=== PATIENT | male | born 1965 | race Caucasian/White ===

== ENCOUNTER 2016-11-16 23:36 | Day surgery (SDCO) | payer OTHER ==
[~2016-11-16] VITALS: Ht 167.6 cm; Wt 144.4 kg
[2016-11-17 00:53] LABS: BASOPHIL 0.1 % (0-2); EOSINOPHIL 0.8 % (0-5); HCT 37.3 % (42.0-52.0); HGB 12.3 g/dl (13.2-18.0); LYMPHOCYTE 5.2 % (15-48); MCH 27.8 pg (25.0-31.0); MCV 84.4 fL (78.0-100.0); MONOCYTE 7.3 % (0-12); MPV 10.8 fL (6.0-9.5); NEUTROPHIL 86.6 % (41-80); PLT 187 K/uL (150-400); RBC 4.42 M/uL (4.70-6.00); RDW 15.5 % (11.5-14.0)
[2016-11-17 00:57] LABS: WBC 22.2 K/uL (4.0-10.5)
[2016-11-17 01:10] LABS: ALBUMIN 3.6 g/dL (3.5-5.0); BILIRUBIN - TOTAL 0.6 mg/dL (0.1-1.0); CREATININE 1.9 mg/dL (0.7-1.2); GLOBULIN (CALCULATION) 3.1 g/dL (2.2-4.2); LACTIC ACID 2.2 mmol/L (0.5-2.2); POTASSIUM 4.6 mmol/L (3.5-5.1); TOTAL PROTEIN 6.7 g/dL (6.4-8.3)
[2016-11-17 01:41] LABS: BILIRUBIN NEGATIVE (NEGATIVE); BLOOD NEGATIVE Ery/uL (NEGATIVE); CLARITY CLEAR (CLEAR); COLOR YELLOW (YELLOW); GLUCOSE (U) 3+ mg/dL (NORMAL); KETONE (U) TRACE mg/dL (NEGATIVE); LEUKOCYTES NEGATIVE Leu/uL (NEGATIVE); NITRITE NEGATIVE (NEGATIVE); PROTEIN TRACE (LOW) mg/dL (NEGATIVE); SPECIFIC GRAVITY 1.025 (1.001-1.030); UROBILINOGEN 0.2 mg/dL (0.2-1.0)
[2016-11-17 01:43] LABS: SQUAMOUS EPITHELIAL CELLS RARE
[2016-11-18 05:51] LABS: BASOPHIL 0.2 % (0-2); EOSINOPHIL 2.2 % (0-5); HCT 33.8 % (42.0-52.0); LYMPHOCYTE 13.4 % (15-48); MCHC 32.5 g/dL (32.0-36.0); MONOCYTE 10.3 % (0-12); MPV 10.9 fL (6.0-9.5); NEUTROPHIL 73.9 % (41-80); PLT 134 K/uL (150-400); RBC 3.93 M/uL (4.70-6.00); RDW 15.9 % (11.5-14.0); WBC 9.6 K/uL (4.0-10.5)
[2016-11-18 06:17] LABS: MAGNESIUM 2.11 mg/dL (1.40-2.10); POTASSIUM 4.5 mmol/L (3.5-5.1)
[2016-11-18] MEDS ORDERED: ZOCOR80 MG PO (14:04)
[2016-11-18] MEDS ORDERED: LEVAQUIN750 M1 PO (14:04)
[2016-11-18] MEDS ORDERED: ZYRTEC10 MG PO (14:04)
[2016-11-18] MEDS ORDERED: LISINOPRIL-HCT1 EAC1 PO (14:05)
[2016-11-18] MEDS ORDERED: MELOXICAM15 MG PO (14:05)
[2016-11-18] MEDS ORDERED: METFORMIN HCL1000 M1 PO (14:05)
[2016-11-18] MEDS ORDERED: LASIX40 MG PO (14:05)
[2016-11-18] MEDS ORDERED: HUMALOG INSULIN PUMP (14:06)
[2016-11-18] MEDS ORDERED: VICTOZA 2-0.6 MG/0.1 SC (14:06)
[2016-11-18] MEDS ORDERED: GABAPENTIN600 MG PO (14:06)
[2016-11-18] MEDS ORDERED: MICRO-K10 MEQ PO (14:07)
[2016-11-18] MEDS ORDERED: NAPROSYN500 MG PO (14:07)
[2016-11-18] MEDS ORDERED: INVOKANA300 MG PO (14:07)
== END 2016-11-18 17:39 | disposition home health service (06) ==
LOC: FER 23:36 → FMS 11-17 02:45
PROVIDERS: Emergency Medicine; Nurse Practitioner; ADMIT Internal Medicine Nephrology
DX: L03.116 Cellulitis of left lower limb (principal); N17.9 Acute kidney failure, unspecified; E11.40 Type 2 diabetes mellitus with diabetic neuropathy, unspecified; Z79.4 Long term (current) use of insulin; I10 Essential (primary) hypertension; E66.01 Morbid (severe) obesity due to excess calories; Z68.43 Body mass index [BMI] 50.0-59.9, adult; E78.5 Hyperlipidemia, unspecified
CPT/HCPCS: 36415; 80048; 80053; 81001; 82150; 82962; 83605; 83735; 85025; 85651; 86140; 87040; 87088; G0378; J1644; J1956; J2543

== ENCOUNTER 2020-11-29 13:56 | Emergency (ER) | payer OTHER ==
[~2020-11-29 13:56] MED LIST: 24HOUR ALLERGY10 MG PO; CLARITIN10 MG PO; GABAPENTIN600 MG PO; HUMALOG; HUMALOG INSULIN PUMP; INVOKANA300 MG PO; KEFLEX500 MG PO; LASIX40 MG PO; LEVAQUIN750 M1 PO; LISINOPRIL-HCT1 EAC1 PO; MELOXICAM15 MG PO; METFORMIN HCL1000 M1 PO; METFORMIN HCL1000 M2 PO; MICRO-K10 MEQ PO; NAPROSYN500 MG PO; SIMVASTATIN80 MG PO; UROCIT-K10 MEQ PO; VICTOZA 2-0.6 MG/0.1 SC; VICTOZA 2-0.6 MG/0.1 SQ; ZOCOR80 MG PO; ZYRTEC10 MG PO
[2020-11-29 14:45] LABS: BASOPHIL 0.2 % (0-2); EOSINOPHIL 0.1 % (0-5); HCT 43.1 % (42.0-52.0); HGB 13.7 g/dl (13.2-18.0); LYMPHOCYTE 8.1 % (15-48); MCH 27.3 pg (25.0-31.0); MCHC 31.8 g/dL (32.0-36.0); MONOCYTE 3.5 % (0-12); MPV 11.2 fL (6.0-9.5); NEUTROPHIL 86.5 % (41-80); NRBC 0; PLT 220 K/uL (150-400); RBC 5.01 M/uL (4.70-6.00); RDW 15.1 % (11.5-14.0); WBC 13.1 K/uL (4.0-10.5)
[2020-11-29 14:54] LABS: ALBUMIN 3.3 g/dL (3.4-5.0); BILIRUBIN - TOTAL 0.7 mg/dL (0.2-1.0); BUN/CREAT RATIO (CALC) 23.9 RATIO; CREATININE 0.71 mg/dL (0.67-1.17); GLOBULIN (CALCULATION) 4.4 g/dL; POTASSIUM 3.9 mmol/L (3.5-5.1); TOTAL PROTEIN 7.7 g/dL (6.4-8.2)
[2020-11-29] MEDS ORDERED: LEVETIRACETAM500 M1 PO (16:04)
--- NOTE | 2020-12-06 15:39 | NUR ---
CALLED TO [facility] WITH 'S RECENT VISIT TO THE ER. REVIEWED PATIENT'S CHART PRIOR TO RETURN CALL.
== END 2020-11-29 16:21 | disposition home or self-care (01) ==
LOC: FER 13:56
PROVIDERS: Emergency Medicine
DX: G40.409 Other generalized epilepsy and epileptic syndromes, not intractable, without status epilepticus (principal); G31.9 Degenerative disease of nervous system, unspecified; S00.512A Abrasion of oral cavity, initial encounter; E11.9 Type 2 diabetes mellitus without complications; I10 Essential (primary) hypertension; X58.XXXA Exposure to other specified factors, initial encounter; Z86.73 Personal history of transient ischemic attack (TIA), and cerebral infarction without residual deficits
CPT/HCPCS: 36415; 70450; 80053; 84484; 85025; 93005; J1953

== ENCOUNTER 2021-01-26 09:19 | Emergency (ER) | payer OTHER ==
[~2021-01-26 09:19] MED LIST changes: +LEVETIRACETAM500 M1 PO
[2021-01-26 09:42] LABS: BASOPHIL 0.9 % (0-2); EOSINOPHIL 2.5 & (0-5); HCT 46.4 % (42.0-52.0); LYMPHOCYTE 22.5 % (15-48); MCH 26.1 pg (25.0-31.0); MCHC 32.3 g/dL (32.0-36.0); MCV 80.7 fL (78.0-100.0); MONOCYTE 7.9 % (0-12); MPV 11.2 fL (6.0-9.5); NEUTROPHIL 66.1 % (41-80); PLT 280 K/uL (150-400); RBC 5.75 M/uL (4.70-6.00); RDW 14.8 % (11.5-14.0); WBC 11.38 K/uL (4.0-10.5)
[2021-01-26 10:04] LABS: ALBUMIN 3.8 g/dL (3.4-5.0); BILIRUBIN - TOTAL 0.8 mg/dL (0.2-1.0); BUN/CREAT RATIO (CALC) 21.8 RATIO; CREATININE 0.78 mg/dL (0.67-1.17); GLOBULIN (CALCULATION) 4.6 g/dL; POTASSIUM 3.6 mmol/L (3.5-5.1); TOTAL PROTEIN 8.4 g/dL (6.4-8.2)
[2021-01-26] MEDS ORDERED: NITROGLYCERIN0.4 MG SL (11:32)
== END 2021-01-26 12:50 | disposition home or self-care (01) ==
LOC: FER 09:19
PROVIDERS: Internal Medicine
DX: I20.9 Angina pectoris, unspecified (principal); R91.1 Solitary pulmonary nodule; I10 Essential (primary) hypertension; E11.9 Type 2 diabetes mellitus without complications; F03.90 Unspecified dementia, unspecified severity, without behavioral disturbance, psychotic disturbance, mood disturbance, and anxiety; Z86.73 Personal history of transient ischemic attack (TIA), and cerebral infarction without residual deficits; Z87.891 Personal history of nicotine dependence; Z98.890 Other specified postprocedural states
CPT/HCPCS: 36415; 71045; 71275; 80053; 83690; 84484; 85025; 93005; Q9967

== ENCOUNTER 2021-02-02 17:43 | Emergency (ER) | payer OTHER ==
[~2021-02-02 17:43] MED LIST changes: +NITROGLYCERIN0.4 MG SL
[2021-02-02 18:38] LABS: EOSINOPHIL 2.4 % (0-5); HCT 43.8 % (42.0-52.0); HGB 14.3 g/dl (13.2-18.0); LYMPHOCYTE 24.8 % (15-48); MCH 26.2 pg (25.0-31.0); MCHC 32.6 g/dL (32.0-36.0); MCV 80.4 fL (78.0-100.0); MONOCYTE 10.3 % (0-12); MPV 11.7 fL (6.0-9.5); NEUTROPHIL 61.2 % (41-80); NRBC 0; PLT 247 K/uL (150-400); RBC 5.45 M/uL (4.70-6.00); RDW 15.9 % (11.5-14.0); WBC 9.2 K/uL (4.0-10.5)
[2021-02-02 18:42] LABS: INR 1.29 (0.9-1.2); PROTHROMBIN TIME 15.4 SECONDS (11.8-13.4); PTT 30.9 SECONDS (24.4-34.7)
[2021-02-02 18:49] LABS: ALBUMIN 3.7 g/dL (3.4-5.0); BILIRUBIN - TOTAL 0.6 mg/dL (0.2-1.0); BUN/CREAT RATIO (CALC) 15.7 RATIO; CREATININE 0.7 mg/dL (0.67-1.17); POTASSIUM 3.3 mmol/L (3.5-5.1); TOTAL PROTEIN 7.7 g/dL (6.4-8.2)
[2021-02-02 18:51] LABS: LACTIC ACID 1.1 mmol/L (0.4-1.9)
[2021-02-02 20:27] LABS: MAGNESIUM 1.8 mg/dL (1.8-2.4); PHOSPHORUS 2.5 mg/dL (2.6-4.7)
== END 2021-02-02 22:26 | disposition home or self-care (01) ==
LOC: FER 17:43
PROVIDERS: Emergency Medicine
DX: R41.82 Altered mental status, unspecified (principal); E83.39 Other disorders of phosphorus metabolism; E11.9 Type 2 diabetes mellitus without complications; F03.90 Unspecified dementia, unspecified severity, without behavioral disturbance, psychotic disturbance, mood disturbance, and anxiety; Z86.73 Personal history of transient ischemic attack (TIA), and cerebral infarction without residual deficits; Z88.5 Allergy status to narcotic agent; Z87.891 Personal history of nicotine dependence; Z20.822 Contact with and (suspected) exposure to COVID-19
CPT/HCPCS: 36415; 70450; 71045; 71250; 80053; 83605; 83735; 84100; 84145; 85025; 85610; 85730; 87040; 93005; J7030; U0002

== ENCOUNTER 2021-02-07 15:15 | Emergency (ER) | payer OTHER ==
[2021-02-07 16:33] LABS: BASOPHIL 0.8 % (0-2); EOSINOPHIL 0.6 % (0-5); HCT 43.8 % (42.0-52.0); HGB 14.5 g/dl (13.2-18.0); MCH 26.3 pg (25.0-31.0); MCHC 33.1 g/dL (32.0-36.0); MCV 79.5 fL (78.0-100.0); MONOCYTE 11.6 % (0-12); MPV 11.7 fL (6.0-9.5); NEUTROPHIL 70.6 % (41-80); NRBC 0; PLT 253 K/uL (150-400); RBC 5.51 M/uL (4.70-6.00); RDW 16.6 % (11.5-14.0); WBC 7.9 K/uL (4.0-10.5)
[2021-02-07 17:07] LABS: ALBUMIN 3.8 g/dL (3.4-5.0); BILIRUBIN - TOTAL 0.7 mg/dL (0.2-1.0); BUN/CREAT RATIO (CALC) 10.3 RATIO; CREATININE 0.58 mg/dL (0.67-1.17); GLOBULIN (CALCULATION) 4.2 g/dL
[2021-02-07 17:08] LABS: POTASSIUM 2.8 mmol/L (3.5-5.1)
[2021-02-07 18:09] LABS: LACTIC ACID 1.1 mmol/L (0.4-1.9)
[2021-02-07 20:09] LABS: BILIRUBIN 2+ mg/dL (NEGATIVE); BLOOD 2+ Ery/uL (NEGATIVE); CLARITY CLEAR (CLEAR); COLOR YELLOW (YELLOW); GLUCOSE (U) 2+ mg/dL (NORMAL); LEUKOCYTES NEGATIVE Leu/uL (NEGATIVE); NITRITE NEGATIVE (NEGATIVE); PROTEIN 2+ mg/dL (NEGATIVE); SPECIFIC GRAVITY 1.025 (1.001-1.030); UROBILINOGEN 0.2 mg/dL (0.2-1.0)
[2021-02-07 21:07] LABS: BACTERIA TRACE; GRANULAR CASTS MODERATE; MUCOUS LARGE
[2021-02-08 16:59] LABS: ALBUMIN 3.1 g/dL (3.4-5.0); BILIRUBIN - TOTAL 0.6 mg/dL (0.2-1.0); BUN/CREAT RATIO (CALC) 9.1 RATIO; CREATININE 0.66 mg/dL (0.67-1.17); GLOBULIN (CALCULATION) 3.9 g/dL; POTASSIUM 2.5 mmol/L (3.5-5.1)
== END 2021-02-09 00:55 | disposition other institution (70) ==
LOC: FER 15:15
PROVIDERS: Emergency Medicine
DX: R41.82 Altered mental status, unspecified (principal); E87.2 Acidosis; R62.7 Adult failure to thrive; E11.9 Type 2 diabetes mellitus without complications; Z88.5 Allergy status to narcotic agent; Z20.822 Contact with and (suspected) exposure to COVID-19
CPT/HCPCS: 36415; 36600; 80048; 80053; 81001; 82803; 83605; 83690; 84443; 85025; G0480; J2405; J3480; J7120; Q9967; U0002

== ENCOUNTER 2021-04-21 00:47 | Day surgery (SDCO) | payer OTHER ==
[~2021-04-21] VITALS: Ht 167.6 cm; Wt 107.0 kg
[2021-04-21 01:41] LABS: ALBUMIN 3.3 g/dL (3.4-5.0); ALKALINE PHOSHATASE 75 U/L (46-116); ALT 40 U/L (16-63); AST 32 U/L (15-37); BILIRUBIN - TOTAL 0.7 mg/dL (0.2-1.0); BUN 15 mg/dL (7-18); BUN/CREAT RATIO (CALC) 24.2 RATIO; CHLORIDE 100 mmol/L (98-107); CO2 (BICARBONATE) 22 mmol/L (21-32); CREATININE 0.62 mg/dL (0.67-1.17); GLUCOSE 171 mg/dL (74-106); LIPASE 1113 U/L (73-393); POTASSIUM 3.6 mmol/L (3.5-5.1); TOTAL PROTEIN 7.3 g/dL (6.4-8.2)
[2021-04-21 01:45] LABS: BASOPHIL 0.5 % (0-2); EOSINOPHIL 0.7 % (0-5); HCT 39.9 % (42.0-52.0); HGB 11.9 g/dl (13.2-18.0); MCH 25.3 pg (25.0-31.0); MCHC 29.8 g/dL (32.0-36.0); MCV 84.9 fL (78.0-100.0); MONOCYTE 7.9 % (0-12); MPV 10.8 fL (6.0-9.5); NEUTROPHIL 71.2 % (41-80); NRBC 0; PLT 241 K/uL (150-400); RDW 16.1 % (11.5-14.0); WBC 9.7 K/uL (4.0-10.5)
[2021-04-21 02:12] LABS: CORONAVIRUS 2019 SARS-COV-2 NEGATIVE (NEGATIVE); INFLUENZA A NAA NEGATIVE (NEGATIVE)
[2021-04-21 02:40] LABS: BILIRUBIN 1+ mg/dL (NEGATIVE); BLOOD NEGATIVE Ery/uL (NEGATIVE); CLARITY CLEAR (CLEAR); COLOR YELLOW (YELLOW); GLUCOSE (U) 3+ mg/dL (NORMAL); LEUKOCYTES NEGATIVE Leu/uL (NEGATIVE); NITRITE NEGATIVE (NEGATIVE); PROTEIN NEGATIVE (NEGATIVE); SPECIFIC GRAVITY 1.025 (1.001-1.030); UROBILINOGEN 0.2 mg/dL (0.2-1.0)
[2021-04-21 02:44] LABS: AMPHETAMINES NEGATIVE (NEGATIVE); BARBITURATES NEGATIVE (NEGATIVE); ECSTASY (MDMA) NEGATIVE (NEGATIVE); MARIJUANA (THC) NEGATIVE (NEGATIVE); METHADONE NEGATIVE (NEGATIVE); OPIATES NEGATIVE (NEGATIVE); OXYCODONE NEGATIVE (NEGATIVE)
[2021-04-21] MEDS ORDERED: ONDANSETRON ODT4 MG SL (03:37)
[2021-04-21 07:18] LABS: BASOPHIL 0.5 % (0-2); EOSINOPHIL 0.8 % (0-5); HCT 37.5 % (42.0-52.0); HGB 11.6 g/dl (13.2-18.0); LYMPHOCYTE 16.2 % (15-48); MCH 25.6 pg (25.0-31.0); MCHC 30.9 g/dL (32.0-36.0); MCV 82.8 fL (78.0-100.0); MONOCYTE 8.8 % (0-12); MPV 9.9 fL (6.0-9.5); NEUTROPHIL 73.3 % (41-80); NRBC 0; PLT 219 K/uL (150-400); RBC 4.53 M/uL (4.70-6.00); RDW 16.1 % (11.5-14.0); WBC 10.6 K/uL (4.0-10.5)
[2021-04-21 07:34] LABS: BUN/CREAT RATIO (CALC) 23.5 RATIO; CREATININE 0.51 mg/dL (0.67-1.17); POTASSIUM 3.7 mmol/L (3.5-5.1)
[2021-04-21] MEDS ORDERED: FARXIGA10 MG PO (08:59)
[2021-04-21] MEDS ORDERED: CENTRUM SILVER1 EAC5 PO (09:00)
[2021-04-21] MEDS ORDERED: BUSPAR5 MG PO (09:01)
[2021-04-21] MEDS ORDERED: SERTRALINE HCL150 MG PO (09:03)
[2021-04-21] MEDS ORDERED: MEGACE40 MG PO (09:04)
[2021-04-21] MEDS ORDERED: ASPIRIN EC81 MG PO (09:04)
[2021-04-21] MEDS ORDERED: ALLEGRA ALLERG180 MG PO (09:05)
[2021-04-21] MEDS ORDERED: VITAMIN D350 MCG PO (09:06)
[2021-04-21] MEDS ORDERED: HUMALOG MI100 UNIT/1 SC (09:10)
[2021-04-21 14:51] LABS: BILIRUBIN - DIRECT 0.2 mg/dL (0.00-0.20); BILIRUBIN - TOTAL 0.6 mg/dL (0.2-1.0); GLOBULIN (CALCULATION) 3.6 g/dL; TOTAL PROTEIN 6.6 g/dL (6.4-8.2)
== END 2021-04-21 17:10 | disposition home or self-care (01) ==
LOC: FER 00:47 → FTCU 04:16
PROVIDERS: Emergency Medicine Emergency Medical Services; Family Medicine; Nurse Practitioner; ADMIT Internal Medicine
DX: K85.90 Acute pancreatitis without necrosis or infection, unspecified (principal); G31.09 Other frontotemporal neurocognitive disorder; F02.80 Dementia in other diseases classified elsewhere, unspecified severity, without behavioral disturbance, psychotic disturbance, mood disturbance, and anxiety; R91.1 Solitary pulmonary nodule; I10 Essential (primary) hypertension; E11.42 Type 2 diabetes mellitus with diabetic polyneuropathy; E78.5 Hyperlipidemia, unspecified; Z20.822 Contact with and (suspected) exposure to COVID-19
CPT/HCPCS: 36415; 70450; 72125; 76705; 80048; 80053; 80061; 80076; 80305; 81003; 82962; 83605; 83690; 84484; 85025; 87088; 93005; 97163; 97166; 97530-GP; 97535; G0378; G0480; J1650; J2405; J7120; Q9967; U0002

== ENCOUNTER 2021-06-12 21:20 | Inpatient (IN) | payer OTHER ==
[~2021-06-12] VITALS: Ht 167.6 cm; Wt 104.0 kg
[~2021-06-12 21:20] MED LIST changes: +ALLEGRA ALLERG180 MG PO; +ASPIRIN EC81 MG PO; +BUSPAR5 MG PO; +CENTRUM SILVER1 EAC5 PO; +FARXIGA10 MG PO; +HUMALOG MI100 UNIT/1 SC; +MEGACE40 MG PO; +ONDANSETRON ODT4 MG SL; +SERTRALINE HCL150 MG PO; +VITAMIN D350 MCG PO
[2021-06-12 23:12] LABS: BASOPHIL 0.6 % (0-2); EOSINOPHIL 1.8 % (0-5); HCT 46.7 % (42.0-52.0); HGB 14.2 g/dl (13.2-18.0); MCH 24.3 pg (25.0-31.0); MCHC 30.4 g/dL (32.0-36.0); MCV 79.8 fL (78.0-100.0); MONOCYTE 9.1 % (0-12); MPV 11.8 fL (6.0-9.5); NEUTROPHIL 66.1 % (41-80); NRBC 0; PLT 165 K/uL (150-400); RBC 5.85 M/uL (4.70-6.00); RDW 16.4 % (11.5-14.0); WBC 12.7 K/uL (4.0-10.5)
[2021-06-12 23:19] LABS: ALBUMIN 4.1 g/dL (3.4-5.0); BILIRUBIN - TOTAL 0.6 mg/dL (0.2-1.0); BUN/CREAT RATIO (CALC) 12.9 RATIO; CREATININE 0.7 mg/dL (0.67-1.17); GLOBULIN (CALCULATION) 4.3 g/dL; MAGNESIUM 1.8 mg/dL (1.8-2.4); POTASSIUM 3.7 mmol/L (3.5-5.1); TOTAL PROTEIN 8.4 g/dL (6.4-8.2)
[2021-06-13 02:29] LABS: BUN/CREAT RATIO (CALC) 13.3 RATIO; CREATININE 0.6 mg/dL (0.67-1.17); POTASSIUM 4.2 mmol/L (3.5-5.1)
[2021-06-13 05:39] LABS: BUN 7 mg/dL (7-18); CHLORIDE 109 mmol/L (98-107); CREATININE 0.56 mg/dL (0.67-1.17); GLUCOSE 140 mg/dL (74-106); POTASSIUM 4.4 mmol/L (3.5-5.1)
[2021-06-13 07:47] LABS: BUN/CREAT RATIO (CALC) 9.8 RATIO; CREATININE 0.61 mg/dL (0.67-1.17); POTASSIUM 3.6 mmol/L (3.5-5.1)
[2021-06-13 10:03] LABS: BILIRUBIN 2+ mg/dL (NEGATIVE); BLOOD NEGATIVE Ery/uL (NEGATIVE); CLARITY CLEAR (CLEAR); COLOR YELLOW (YELLOW); GLUCOSE (U) 1+ mg/dL (NORMAL); LEUKOCYTES NEGATIVE Leu/uL (NEGATIVE); NITRITE NEGATIVE (NEGATIVE); PROTEIN 1+ mg/dL (NEGATIVE); SPECIFIC GRAVITY >=1.030 (1.001-1.030); UROBILINOGEN 0.2 mg/dL (0.2-1.0)
[2021-06-13 10:35] LABS: GRANULAR CASTS TRACE; MUCOUS TRACE; URINARY WBC RARE
[2021-06-13 10:52] LABS: CREATININE 0.57 mg/dL (0.67-1.17); POTASSIUM 3.5 mmol/L (3.5-5.1)
[2021-06-13 12:32] LABS: BUN/CREAT RATIO (CALC) 7.4 RATIO; CREATININE 0.54 mg/dL (0.67-1.17); POTASSIUM 3.5 mmol/L (3.5-5.1)
[2021-06-13 14:18] LABS: BUN/CREAT RATIO (CALC) 7.5 RATIO; CREATININE 0.53 mg/dL (0.67-1.17); POTASSIUM 3.3 mmol/L (3.5-5.1)
[2021-06-13 18:52] LABS: BUN/CREAT RATIO (CALC) 5.6 RATIO; CREATININE 0.54 mg/dL (0.67-1.17); POTASSIUM 3.8 mmol/L (3.5-5.1)
[2021-06-13 22:34] LABS: BUN/CREAT RATIO (CALC) 7.3 RATIO; CREATININE 0.55 mg/dL (0.67-1.17); POTASSIUM 4.2 mmol/L (3.5-5.1)
[2021-06-14 02:48] LABS: BUN/CREAT RATIO (CALC) 2.9 RATIO; CREATININE 0.69 mg/dL (0.67-1.17); POTASSIUM 3.8 mmol/L (3.5-5.1)
[2021-06-14 06:55] LABS: BUN/CREAT RATIO (CALC) 1.7 RATIO; CREATININE 0.59 mg/dL (0.67-1.17); POTASSIUM 3.6 mmol/L (3.5-5.1)
[2021-06-14 10:25] LABS: BUN/CREAT RATIO (CALC) 1.8 RATIO; CREATININE 0.56 mg/dL (0.67-1.17); POTASSIUM 3.7 mmol/L (3.5-5.1)
[2021-06-14 15:27] LABS: CREATININE 0.51 mg/dL (0.67-1.17); POTASSIUM 3.5 mmol/L (3.5-5.1)
[2021-06-14 19:30] LABS: BUN/CREAT RATIO (CALC) 1.8 RATIO; CREATININE 0.57 mg/dL (0.67-1.17); POTASSIUM 3.6 mmol/L (3.5-5.1)
[2021-06-15 02:20] LABS: BUN <1 mg/dL (7-18); CHLORIDE 111 mmol/L (98-107); CO2 (BICARBONATE) 20 mmol/L (21-32); CREATININE 0.55 mg/dL (0.67-1.17); GLUCOSE 115 mg/dL (74-106); POTASSIUM 3.6 mmol/L (3.5-5.1)
[2021-06-15 06:45] LABS: BUN/CREAT RATIO (CALC) 1.8 RATIO; CREATININE 0.56 mg/dL (0.67-1.17); POTASSIUM 3.2 mmol/L (3.5-5.1)
[2021-06-15] MEDS ORDERED: ATORVASTATIN CA80 MG PO (12:30)
[2021-06-15] MEDS ORDERED: MEMANTINE HCL ER7 MG PO (12:39)
[2021-06-15] MEDS ORDERED: LANTUS100 UNIT/1 SC (12:42)
[2021-06-15] MEDS ORDERED: HUMALOG100 UNIT/3 SC (12:44)
[2021-06-16 06:26] LABS: BASOPHIL 0.6 % (0-2); EOSINOPHIL 3.9 % (0-5); HCT 36.4 % (42.0-52.0); HGB 11.4 g/dl (13.2-18.0); LYMPHOCYTE 33.3 % (15-48); MCH 24.2 pg (25.0-31.0); MCHC 31.3 g/dL (32.0-36.0); MCV 77.1 fL (78.0-100.0); MONOCYTE 8.9 % (0-12); MPV 10.9 fL (6.0-9.5); NEUTROPHIL 53.1 % (41-80); NRBC 0; PLT 144 K/uL (150-400); RBC 4.72 M/uL (4.70-6.00); RDW 17.4 % (11.5-14.0); WBC 4.6 K/uL (4.0-10.5)
[2021-06-16 06:46] LABS: ALBUMIN 2.8 g/dL (3.4-5.0); BILIRUBIN - TOTAL 0.4 mg/dL (0.2-1.0); BUN/CREAT RATIO (CALC) 2.1 RATIO; CREATININE 0.47 mg/dL (0.67-1.17); GLOBULIN (CALCULATION) 3.2 g/dL; MAGNESIUM 1.4 mg/dL (1.8-2.4); PHOSPHORUS 2.5 mg/dL (2.6-4.7); POTASSIUM 3.3 mmol/L (3.5-5.1)
[2021-06-17 06:19] LABS: BASOPHIL 0.7 % (0-2); EOSINOPHIL 3.8 % (0-5); HCT 34.9 % (42.0-52.0); LYMPHOCYTE 33.4 % (15-48); MCH 24.4 pg (25.0-31.0); MCHC 31.5 g/dL (32.0-36.0); MCV 77.6 fL (78.0-100.0); MONOCYTE 10.7 % (0-12); MPV 10.9 fL (6.0-9.5); NEUTROPHIL 51.2 % (41-80); NRBC 0; PLT 144 K/uL (150-400); RDW 17.7 % (11.5-14.0); WBC 4.5 K/uL (4.0-10.5)
[2021-06-17 07:13] LABS: CREATININE 0.43 mg/dL (0.67-1.17); MAGNESIUM 1.7 mg/dL (1.8-2.4); PHOSPHORUS 2.8 mg/dL (2.6-4.7); POTASSIUM 3.5 mmol/L (3.5-5.1)
[2021-06-17 22:47] LABS: BASOPHIL 0.2 % (0-2); EOSINOPHIL 0.1 % (0-5); HCT 44.9 % (42.0-52.0); HGB 14.2 g/dl (13.2-18.0); MCH 24.5 pg (25.0-31.0); MCHC 31.6 g/dL (32.0-36.0); MCV 77.5 fL (78.0-100.0); MPV 11.1 fL (6.0-9.5); NEUTROPHIL 86.5 % (41-80); NRBC 0; PLT 267 K/uL (150-400); RBC 5.79 M/uL (4.70-6.00); RDW 18.8 % (11.5-14.0)
[2021-06-17 22:55] LABS: WBC 16.5 K/uL (4.0-10.5)
[2021-06-17 23:12] LABS: BUN/CREAT RATIO (CALC) 4.4 RATIO; CREATININE 0.68 mg/dL (0.67-1.17); MAGNESIUM 1.5 mg/dL (1.8-2.4); POTASSIUM 3.9 mmol/L (3.5-5.1)
[2021-06-18 02:26] LABS: INR 1.14 (0.9-1.2); PROTHROMBIN TIME 13.1 SECONDS (11.8-13.4); PTT 28.7 SECONDS (24.4-34.7)
[2021-06-18 02:48] LABS: LACTIC ACID 2.4 mmol/L (0.4-1.9)
[2021-06-18 05:12] LABS: BILIRUBIN NEGATIVE (NEGATIVE); BLOOD 3+ Ery/uL (NEGATIVE); CLARITY CLEAR (CLEAR); COLOR YELLOW (YELLOW); GLUCOSE (U) NORMAL (NORMAL); LEUKOCYTES NEGATIVE Leu/uL (NEGATIVE); NITRITE NEGATIVE (NEGATIVE); PROTEIN TRACE (LOW) mg/dL (NEGATIVE); SPECIFIC GRAVITY <=1.005 (1.001-1.030); UROBILINOGEN 0.2 mg/dL (0.2-1.0); pH 5.5 (5.0-9.0)
[2021-06-18 05:15] LABS: BACTERIA TRACE; SQUAMOUS EPITHELIAL CELLS RARE; URINARY RBC 20-50
[2021-06-18 06:02] LABS: BASOPHIL 0.2 % (0-2); EOSINOPHIL 0 % (0-5); HCT 37.9 % (42.0-52.0); HGB 11.7 g/dl (13.2-18.0); LYMPHOCYTE 3.8 % (15-48); MCH 24.5 pg (25.0-31.0); MCHC 30.9 g/dL (32.0-36.0); MCV 79.5 fL (78.0-100.0); MONOCYTE 7.8 % (0-12); MPV 11.4 fL (6.0-9.5); NEUTROPHIL 87.2 % (41-80); NRBC 0; PLT 169 K/uL (150-400); RBC 4.77 M/uL (4.70-6.00); RDW 18.6 % (11.5-14.0)
[2021-06-18 06:08] LABS: WBC 19.2 K/uL (4.0-10.5)
[2021-06-18 06:35] LABS: BUN/CREAT RATIO (CALC) 6.2 RATIO; CREATININE 0.8 mg/dL (0.67-1.17); POTASSIUM 4.4 mmol/L (3.5-5.1)
[2021-06-18 08:54] LABS: MAGNESIUM 1.9 mg/dL (1.8-2.4)
[2021-06-19 06:19] LABS: BASOPHIL 0.2 % (0-2); EOSINOPHIL 1.2 % (0-5); HCT 33.1 % (42.0-52.0); HGB 10.3 g/dl (13.2-18.0); LYMPHOCYTE 13.1 % (15-48); MCH 24.6 pg (25.0-31.0); MCHC 31.1 g/dL (32.0-36.0); MONOCYTE 7.1 % (0-12); MPV 11.4 fL (6.0-9.5); NEUTROPHIL 77.2 % (41-80); NRBC 0; PLT 164 K/uL (150-400); RBC 4.19 M/uL (4.70-6.00); RDW 18.6 % (11.5-14.0); WBC 12.9 K/uL (4.0-10.5)
[2021-06-19 06:40] LABS: BUN/CREAT RATIO (CALC) 25.9 RATIO; CREATININE 0.58 mg/dL (0.67-1.17); POTASSIUM 3.6 mmol/L (3.5-5.1)
[2021-06-20 06:04] LABS: BASOPHIL 0.1 % (0-2); HCT 31.2 % (42.0-52.0); HGB 9.8 g/dl (13.2-18.0); LYMPHOCYTE 15.7 % (15-48); MCH 24.4 pg (25.0-31.0); MCHC 31.4 g/dL (32.0-36.0); MCV 77.6 fL (78.0-100.0); MONOCYTE 7.6 % (0-12); MPV 11.2 fL (6.0-9.5); NEUTROPHIL 73.9 % (41-80); NRBC 0; PLT 146 K/uL (150-400); RBC 4.02 M/uL (4.70-6.00); WBC 7.5 K/uL (4.0-10.5)
[2021-06-20 06:24] LABS: BUN/CREAT RATIO (CALC) 19.6 RATIO; CREATININE 0.46 mg/dL (0.67-1.17); MAGNESIUM 1.7 mg/dL (1.8-2.4); POTASSIUM 3.1 mmol/L (3.5-5.1)
[2021-06-21 07:08] LABS: BASOPHIL 0.6 % (0-2); EOSINOPHIL 3.1 % (0-5); HCT 31.9 % (42.0-52.0); HGB 9.9 g/dl (13.2-18.0); LYMPHOCYTE 22.2 % (15-48); MCH 24.3 pg (25.0-31.0); MCV 78.4 fL (78.0-100.0); MONOCYTE 8.3 % (0-12); MPV 11.6 fL (6.0-9.5); NEUTROPHIL 65.2 % (41-80); NRBC 0; PLT 137 K/uL (150-400); RBC 4.07 M/uL (4.70-6.00); RDW 17.8 % (11.5-14.0); WBC 5.2 K/uL (4.0-10.5)
[2021-06-21 07:47] LABS: BUN/CREAT RATIO (CALC) 17.8 RATIO; CREATININE 0.45 mg/dL (0.67-1.17); MAGNESIUM 1.8 mg/dL (1.8-2.4); POTASSIUM 3.6 mmol/L (3.5-5.1)
[2021-06-23 07:24] LABS: BASOPHIL 0.5 % (0-2); HGB 10.5 g/dl (13.2-18.0); LYMPHOCYTE 22.4 % (15-48); MCHC 30.9 g/dL (32.0-36.0); MCV 77.6 fL (78.0-100.0); MONOCYTE 9.5 % (0-12); MPV 10.8 fL (6.0-9.5); NEUTROPHIL 63.8 % (41-80); NRBC 0; PLT 205 K/uL (150-400); RBC 4.38 M/uL (4.70-6.00); WBC 8.8 K/uL (4.0-10.5)
[2021-06-23 07:48] LABS: BUN/CREAT RATIO (CALC) 9.3 RATIO; CREATININE 0.43 mg/dL (0.67-1.17); POTASSIUM 4.4 mmol/L (3.5-5.1)
[2021-06-24] MEDS ORDERED: PROTEINEX GT (13:19)
[2021-06-24] MEDS ORDERED: HUMULIN R100 UNIT/2 SC (13:19)
[2021-06-24] MEDS ORDERED: INSULIN GL100 UNIT/1 SC (13:19)
[2021-06-24] MEDS ORDERED: MEGACE ORA6 TSP/1 OZ PO (13:19)
[2021-06-24] MEDS ORDERED: AMOX TR-K CLV1 EAC4 PO (13:22)
[2021-06-24] MEDS ORDERED: PROTONIX 40MG T40 MG PO (13:32)
== END 2021-06-24 16:10 | DRG 922 ==
LOC: FER 21:20 → FMS 06-15 09:24 → FTCU 06-15 09:24 → FMS 06-18 18:27
PROVIDERS: Allergy & Immunology; Allergy & Immunology Allergy; Emergency Medicine; Emergency Medicine Emergency Medical Services; Student in an Organized Health Care Education/Training Program; ADMIT Internal Medicine
PROC: 0DH68UZ Insertion of Feeding Device into Stomach, Via Natural or Artificial Opening Endoscopic (ICD-10-PCS; principal; 2021-06-17 13:30)
DX: T73.0XXA Starvation, initial encounter (principal); E10.10 Type 1 diabetes mellitus with ketoacidosis without coma; J69.0 Pneumonitis due to inhalation of food and vomit; I26.99 Other pulmonary embolism without acute cor pulmonale; A41.9 Sepsis, unspecified organism; S37.29XA Other injury of bladder, initial encounter; R63.0 Anorexia; F03.90 Unspecified dementia, unspecified severity, without behavioral disturbance, psychotic disturbance, mood disturbance, and anxiety; E87.6 Hypokalemia; E83.42 Hypomagnesemia; Z20.822 Contact with and (suspected) exposure to COVID-19; I10 Essential (primary) hypertension; E66.9 Obesity, unspecified; F32.A Depression, unspecified; Z86.73 Personal history of transient ischemic attack (TIA), and cerebral infarction without residual deficits; Z98.890 Other specified postprocedural states; Z80.1 Family history of malignant neoplasm of trachea, bronchus and lung; Z80.0 Family history of malignant neoplasm of digestive organs; Z82.49 Family history of ischemic heart disease and other diseases of the circulatory system; Z87.891 Personal history of nicotine dependence; Z79.82 Long term (current) use of aspirin; Z79.4 Long term (current) use of insulin; Z79.899 Other long term (current) drug therapy; Z79.84 Long term (current) use of oral hypoglycemic drugs; G40.909 Epilepsy, unspecified, not intractable, without status epilepticus; R62.7 Adult failure to thrive; Z88.6 Allergy status to analgesic agent; R31.9 Hematuria, unspecified
CPT/HCPCS: 36415; 36600; 70450; 71045; 71275; 74018; 80048; 80053; 80202; 81001; 82009; 82728; 82803; 82962; 83036; 83605; 83615; 83735; 84100; 84145; 84443; 84484; 85025; 85379; 85610; 85730; 87040; 93005; 94010; 94667; 94668; 97162; 97166; 97530; 97530-GP; 97535; G0480; J0690; J1170; J1650; J1815; J2060; J2543; J2704; J3370; J3475; J3480; J7030; J7040; J7050; J7120; Q9967; U0002

== ENCOUNTER 2021-07-12 18:04 | Emergency (ER) | payer OTHER ==
[~2021-07-12 18:04] MED LIST changes: +AMOX TR-K CLV1 EAC4 PO; +ATORVASTATIN CA80 MG PO; +HUMALOG100 UNIT/3 SC; +HUMULIN R100 UNIT/2 SC; +INSULIN GL100 UNIT/1 SC; +LANTUS100 UNIT/1 SC; +MEGACE ORA6 TSP/1 OZ PO; +MEMANTINE HCL ER7 MG PO; +PROTEINEX GT; +PROTONIX 40MG T40 MG PO
[2021-07-12 19:55] LABS: BASOPHIL 0.6 % (0-2); EOSINOPHIL 3.6 % (0-5); HCT 36.7 % (42.0-52.0); HGB 11.1 g/dl (13.2-18.0); LYMPHOCYTE 18.2 % (15-48); MCH 23.5 pg (25.0-31.0); MCHC 30.2 g/dL (32.0-36.0); MCV 77.8 fL (78.0-100.0); MONOCYTE 7.3 % (0-12); MPV 10.2 fL (6.0-9.5); NEUTROPHIL 69.9 % (41-80); NRBC 0; PLT 318 K/uL (150-400); RBC 4.72 M/uL (4.70-6.00); RDW 16.6 % (11.5-14.0); WBC 10.7 K/uL (4.0-10.5)
[2021-07-12 20:14] LABS: ALBUMIN 3.4 g/dL (3.4-5.0); BILIRUBIN - TOTAL 0.5 mg/dL (0.2-1.0); BUN/CREAT RATIO (CALC) 21.7 RATIO; CREATININE 0.6 mg/dL (0.67-1.17); GLOBULIN (CALCULATION) 4.5 g/dL; POTASSIUM 3.7 mmol/L (3.5-5.1); TOTAL PROTEIN 7.9 g/dL (6.4-8.2)
[2021-07-12 23:08] LABS: BILIRUBIN NEGATIVE (NEGATIVE); BLOOD NEGATIVE Ery/uL (NEGATIVE); CLARITY CLEAR (CLEAR); COLOR YELLOW (YELLOW); GLUCOSE (U) NORMAL (NORMAL); LEUKOCYTES NEGATIVE Leu/uL (NEGATIVE); NITRITE NEGATIVE (NEGATIVE); PROTEIN NEGATIVE (NEGATIVE); SPECIFIC GRAVITY >=1.030 (1.001-1.030); UROBILINOGEN 0.2 mg/dL (0.2-1.0); pH 5.5 (5.0-9.0)
== END 2021-07-13 00:05 | disposition home or self-care (01) ==
LOC: FER 18:04
PROVIDERS: Internal Medicine
DX: G31.09 Other frontotemporal neurocognitive disorder (principal); F02.80 Dementia in other diseases classified elsewhere, unspecified severity, without behavioral disturbance, psychotic disturbance, mood disturbance, and anxiety; W19.XXXA Unspecified fall, initial encounter; Y92.002 Bathroom of unspecified non-institutional (private) residence as the place of occurrence of the external cause
CPT/HCPCS: 36415; 71045; 80053; 81003; 82550; 84145; 85025

== ENCOUNTER 2021-09-24 15:09 | Emergency (ER) | payer OTHER ==
[2021-09-24 16:49] LABS: BUN/CREAT RATIO (CALC) 21.5 RATIO; CREATININE 0.65 mg/dL (0.67-1.17)
[2021-09-24 16:55] LABS: BASOPHIL 0.9 % (0-2); HCT 38.1 % (42.0-52.0); HGB 10.8 g/dl (13.2-18.0); LYMPHOCYTE 21.7 % (15-48); MCH 20.7 pg (25.0-31.0); MCHC 28.3 g/dL (32.0-36.0); MCV 72.8 fL (78.0-100.0); MPV 10.9 fL (6.0-9.5); NEUTROPHIL 65.1 % (41-80); NRBC 0; PLT 250 K/uL (150-400); RBC 5.23 M/uL (4.70-6.00); RDW 17.1 % (11.5-14.0)
[2021-09-24 17:13] LABS: BILIRUBIN NEGATIVE (NEGATIVE); BLOOD NEGATIVE Ery/uL (NEGATIVE); CLARITY CLEAR (CLEAR); COLOR YELLOW (YELLOW); GLUCOSE (U) NORMAL (NORMAL); LEUKOCYTES NEGATIVE Leu/uL (NEGATIVE); NITRITE NEGATIVE (NEGATIVE); PROTEIN TRACE (LOW) mg/dL (NEGATIVE); SPECIFIC GRAVITY >=1.030 (1.001-1.030); UROBILINOGEN 0.2 mg/dL (0.2-1.0); pH 5.5 (5.0-9.0)
--- NOTE | 2021-09-25 15:06 | NUR ---
Mr. Gonsalez was seen in the ED on 09/24/21 r/t resource needs. Mr. Gonsalez has a dx of dementia. This mental health social worker met with his spouse on 04/23/21 and made numeroud referral. Ms. Gonsalez did get his DD-214 and an appointment is scheduled at [facility] for 09/26. Ms. Gonsalez reports to have applied for a Medicaid Waiver program. [facility] is current and the mental health social worker has seen them once. - Ms. Gonsalez has not arranged for sitters. However, Mr. Gonsalez's brother is planning to move into the home in November. - Ms. Gonsalez was again advised to contact Magali Cardenas / [facility], [place]. She was given the following resources: [employer], sitters, [facility], and [employer]. - A referral was made to [facility] for services.
== END 2021-09-24 18:15 | disposition home or self-care (01) ==
LOC: FER 15:09
PROVIDERS: Nurse Practitioner Family
DX: F03.90 Unspecified dementia, unspecified severity, without behavioral disturbance, psychotic disturbance, mood disturbance, and anxiety (principal); R53.81 Other malaise; E11.9 Type 2 diabetes mellitus without complications; I10 Essential (primary) hypertension; Z88.5 Allergy status to narcotic agent; Z79.4 Long term (current) use of insulin; Z79.84 Long term (current) use of oral hypoglycemic drugs; Z79.899 Other long term (current) drug therapy
CPT/HCPCS: 36415; 80048; 81003; 85025; 99285

== ENCOUNTER 2021-10-30 13:48 | Emergency (ER) | payer OTHER ==
[2021-10-30 15:54] LABS: BASOPHIL 0.6 % (0-2); EOSINOPHIL 1.7 % (0-5); HCT 40.4 % (42.0-52.0); HGB 11.5 g/dl (13.2-18.0); LYMPHOCYTE 19.7 % (15-48); MCHC 28.5 g/dL (32.0-36.0); MCV 70.4 fL (78.0-100.0); MPV 10.7 fL (6.0-9.5); NEUTROPHIL 68.7 % (41-80); NRBC 0; PLT 329 K/uL (150-400); RBC 5.74 M/uL (4.70-6.00); RDW 18.8 % (11.5-14.0); WBC 9.8 K/uL (4.0-10.5)
[2021-10-30 15:59] LABS: BILIRUBIN NEGATIVE (NEGATIVE); BLOOD NEGATIVE Ery/uL (NEGATIVE); CLARITY CLEAR (CLEAR); COLOR YELLOW (YELLOW); GLUCOSE (U) NORMAL (NORMAL); LEUKOCYTES NEGATIVE Leu/uL (NEGATIVE); NITRITE NEGATIVE (NEGATIVE); PROTEIN 1+ mg/dL (NEGATIVE); SPECIFIC GRAVITY >=1.030 (1.001-1.030)
[2021-10-30 16:05] LABS: LACTIC ACID 1.2 mmol/L (0.4-1.9)
[2021-10-30 16:06] LABS: ALBUMIN 4.2 g/dL (3.4-5.0); BILIRUBIN - TOTAL 0.6 mg/dL (0.2-1.0); BUN/CREAT RATIO (CALC) 22.4 RATIO; CREATININE 0.76 mg/dL (0.67-1.17); GLOBULIN (CALCULATION) 4.4 g/dL; MAGNESIUM 1.9 mg/dL (1.8-2.4); POTASSIUM 4.3 mmol/L (3.5-5.1); TOTAL PROTEIN 8.6 g/dL (6.4-8.2)
[2021-10-30 16:07] LABS: CALCIUM OXALATE CRYSTALS MODERATE
[2021-10-30 16:09] LABS: MUCOUS MODERATE
--- NOTE | 2021-11-02 15:44 | NUR ---
CALL RECEIVED FROM [facility] IN [place]. PATIENT IS CURRENTLY IN THE ED THERE AND FACILITY HAS REQUESTED RECORDS FROM PATIENT'S ED VISIT HERE ON 10/30/21 FOR CONTINUITY OF CARE. RECORDS SENT TO PROVIDED FAX.
== END 2021-10-30 17:46 | disposition home or self-care (01) ==
LOC: FER 13:48
PROVIDERS: Emergency Medicine
DX: S20.221A Contusion of right back wall of thorax, initial encounter (principal); F03.90 Unspecified dementia, unspecified severity, without behavioral disturbance, psychotic disturbance, mood disturbance, and anxiety; I10 Essential (primary) hypertension; E11.9 Type 2 diabetes mellitus without complications; G40.909 Epilepsy, unspecified, not intractable, without status epilepticus; Z20.822 Contact with and (suspected) exposure to COVID-19; Z88.5 Allergy status to narcotic agent; Z79.82 Long term (current) use of aspirin; Z79.84 Long term (current) use of oral hypoglycemic drugs; Z79.899 Other long term (current) drug therapy; W19.XXXA Unspecified fall, initial encounter; Y92.002 Bathroom of unspecified non-institutional (private) residence as the place of occurrence of the external cause
CPT/HCPCS: 36415; 70450; 71250; 80053; 81001; 83605; 83735; 84145; 84484; 85025; 87040; 87088; 93005; J7030; U0002